=== PATIENT | female | born 1995 | race Caucasian/White ===

== ENCOUNTER 2016-06-07 23:14 | Inpatient (IN) | payer OTHER ==
[2016-06-08 05:47] LABS: RED BLOOD COUNT 4.2 M/UL (4.00-5.10); WHITE BLOOD COUNT 12.2 K/UL (4.5-11.0)
[2016-06-09 03:32] LABS: HEMOGLOBIN 11.9 gm/dl (12.3-15.3)
[2016-06-09] MEDS ORDERED: NORCO 5-325 TA1 EACH PO (16:59)
== END 2016-06-09 16:57 | disposition home or self-care (01) | DRG 775 ==
LOC: GENOP 23:14 → OB 06-08 05:10
PROVIDERS: Obstetrics & Gynecology; ADMIT Obstetrics & Gynecology
PROC: 10907ZC Drainage of Amniotic Fluid, Therapeutic from Products of Conception, Via Natural or Artificial Opening (ICD-10-PCS; principal; 2016-06-08)
PROC: 10E0XZZ Delivery of Products of Conception, External Approach (ICD-10-PCS; 2016-06-08)
PROC: 3E0234Z Introduction of Serum, Toxoid and Vaccine into Muscle, Percutaneous Approach (ICD-10-PCS; 2016-06-09)
DX: O69.81X0 Labor and delivery complicated by cord around neck, without compression, not applicable or unspecified (principal); O99.214 Obesity complicating childbirth; E66.01 Morbid (severe) obesity due to excess calories; Z3A.39 39 weeks gestation of pregnancy; Z37.0 Single live birth; Z23 Encounter for immunization
CPT/HCPCS: 36415; 51702; 81001; 82800; 85014; 85018; 85025; 90715; J2590; J2795; J7030; J7120

== ENCOUNTER → 2020-08-24 | Day surgery (SDC) | payer OTHER ==
[~2020-08-24] MED LIST: ADIPEX-P37.5 M1 PO; COLACE100 MG PO; IBUPROFEN800 MG PO; NORCO 5-325 TA1 EACH PO; PERCOCET 5/325 T1 EA PO
[2020-08-24 08:11] LABS: HEMOGLOBIN 14.8 gm/dl (12.3-15.3); RED BLOOD COUNT 4.84 M/UL (4.00-5.10); WHITE BLOOD COUNT 7.9 K/UL (4.5-11.0)
== END | disposition home or self-care (01) ==
LOC: OR 07:30
PROVIDERS: Obstetrics & Gynecology
PROC: 0UBG0ZZ Excision of Vagina, Open Approach (ICD-10-PCS; 2020-08-24)
PROC: 0UBC7ZZ Excision of Cervix, Via Natural or Artificial Opening (ICD-10-PCS; principal; 2020-08-24 08:25)
DX: R87.613 High grade squamous intraepithelial lesion on cytologic smear of cervix (HGSIL) (principal); A63.0 Anogenital (venereal) warts; L91.8 Other hypertrophic disorders of the skin; G43.909 Migraine, unspecified, not intractable, without status migrainosus; F17.210 Nicotine dependence, cigarettes, uncomplicated; J45.909 Unspecified asthma, uncomplicated; Z79.899 Other long term (current) drug therapy
CPT/HCPCS: 36415; 81001; 84702; 85025; J0690; J1100; J1885; J2001; J2250; J2405; J2704; J3010; J7120